=== PATIENT | female | born 1955 | race Caucasian/White ===

== ENCOUNTER 2017-02-14 14:49 | Outpatient (CLI) | payer OTHER ==
--- NOTE | 2017-02-14 16:31 | DIAGNOSTIC IMAGING REPORT ---
PROCEDURE: MG BILATERAL SCREENING W/CAD INDICATION: Screening. Family history breast carcinoma (maternal grandmother). TECHNIQUE: Bilateral CC and MLO digital views. COMPARISON: Compared to 12/21/2011. FINDINGS: Computer-aided detection applied. Moderately dense. No change. IMPRESSION: 1. Negative mammogram RESULT CODE: 1- Negative. A. A negative report should not delay biopsy if a dominant or clinically suspicious mass is present. 10-15% of cancers are not identified by x-ray. B. A negative report may reinforce clinical impression. C. Adenosis and dense breasts may obscure an underlying neoplasm. D. False positive reports average 6-10%. E.. A yearly screening mammogram is recommended. A reminder letter will be scheduled.
--- NOTE | 2017-02-16 10:03 | DIAGNOSTIC IMAGING REPORT ---
PROCEDURE: US COMPLETE PELVIC W/TRANSVAG INDICATION: PELVIS PAIN TECHNIQUE: Transabdominal and endovaginal kidd scale and color Doppler sonographic images of the female pelvis were obtained. COMPARISON: None. FINDINGS: TRANSABDOMINAL SCANS: Poor visualization of the uterus. No pelvic mass or free fluid. TRANSVAGINAL SCANS: Anteverted uterus measures 5.7 x 4.2 x 2.8 cm. Myometrium is unremarkable. Thickened slightly inhomogeneous endometrium measures 10 mm with some vascularity. Ovaries not visualized. No free fluid. IMPRESSION: 1. Thickened inhomogeneous vascular endometrium. This may represent hyperplasia or neoplastic changes. Recommend tissue biopsy 2. Atrophic changes 3. Results discussed with Dr. Brooks
== END 2017-02-14 23:00 ==
LOC: US SRH 14:49
DX: R93.8 Abnormal findings on diagnostic imaging of other specified body structures (principal); Z12.31 Encounter for screening mammogram for malignant neoplasm of breast